=== PATIENT | male | born 1990 | race Caucasian/White ===

== ENCOUNTER 2017-02-17 11:48 | Observation (INO) | payer OTHER ==
[~2017-02-17] VITALS: Ht 165.1 cm; Wt 95.0 kg
[2017-02-17] MEDS ORDERED: MORPHINE SULFATE 8 MG/ML INJ ONE (11:54)
[2017-02-17 11:55] VITALS: O2SAT 99
[2017-02-17 12:14] LABS: I-STAT POTASSIUM 3.7 MMOL/L (3.5-4.9)
[2017-02-17 12:15] LABS: AUTOMATED NEUTROPHIL # 5.7 TH/MM3 (1.8-7.7); BASOPHIL % 0.2 % (0.0-2.0); EOSINOPHIL # 0.1 TH/MM3 (0-0.4); EOSINOPHIL % 0.8 % (0.0-4.0); HEMO FLAGS DIFF FINAL; LYMPH % 24.1 % (9.0-44.0); MEAN CELL VOLUME 91.3 FL (80.0-100.0); MEAN CORPUSCULAR HEMOGLOBIN 31.3 PG (27.0-34.0); MEAN CORPUSCULAR HGB CONC 34.3 % (32.0-36.0); MONO % 7.3 % (0.0-8.0); NEUT % 67.6 % (16.0-70.0); PLATELET COUNT 232 TH/MM3 (150-450); RED CELL DISTRIBUTION WIDTH 12.3 % (11.6-17.2); WHITE BLOOD COUNT 8.4 TH/MM3 (4.0-11.0)
[2017-02-17 12:23] LABS: APTT (PATIENT) 24.7 SEC (24.3-30.1); PROTHROMBIN TIME - PATIENT 10.6 SEC (9.8-11.6)
--- NOTE | 2017-02-17 12:29 | PD ---
HPI Chief Complaint: Trauma (Alert) Time Seen by Provider: 12:21 Travel History International Travel<30 days: No Contact w/Intl Traveler<30days: No Traveled to known affect area: No History of Present Illness HPI This is a 29 year-old gentleman is brought in by EMS as a trauma alert. The patient was up on a 15 foot ladder and while stepping down, fell backwards and fell on his left side. Patient reports pain in his left ankle, left heel, left parnell, lumbar spine. Patient also reports neck pain but states he's not sure of this is new or not. There is no reported loss of consciousness. The patient has no abdominal pain. There is no pelvic pain on rock but there is lumbar pain with rocking. Patient denies any previous past medical history. Patient denies any medications. He states he last ate this morning at about 5:40 AM. [facility] Social History Tobacco Use: No Allergies-Medications (Allergen,Severity, Reaction): Coded Allergies: No Known Allergies (Unverified , 02/17/17) Review of Systems Except as stated in HPI: all other systems reviewed are Neg General / Constitutional: No: Fever, Chills Eyes: No: Diploplia, Blurred Vision HENT: Positive: Neck Pain, No: Headaches Cardiovascular: No: Chest Pain or Discomfort, Palpitations Respiratory: No: Cough, Shortness of Breath Gastrointestinal: No: Nausea, Vomiting, Abdominal Pain Genitourinary: No: Incontinence Musculoskeletal: Positive: Pain (left foot, heel, parnell.), Other (pain in the lower lumbar area.), No: Weakness Neurologic: No: Weakness, Headache, Incontinence, Seizures, Sensory Disturbance Physical Exam Narrative GENERAL: Well-developed well-nourished male in C-spine backboard immobilization. SKIN: Focused skin assessment warm/dry. HEAD: Atraumatic. Normocephalic. EYES: No scleral icterus. No injection or drainage. ENT: No nasal bleeding or discharge. Mucous membranes pink and moist. NECK: Trachea midline. In C spine immobilization. CARDIOVASCULAR: Regular rate and rhythm. No murmur appreciated. RESPIRATORY: No accessory muscle use. Clear to auscultation. Breath sounds equal bilaterally. GASTROINTESTINAL: Abdomen soft, non-tender, nondistended. No pulsatile masses. On rocking of the pelvis, patient complains of discomfort in his lumbar spine. MUSCULOSKELETAL: No obvious deformities. Patient has tenderness to the touch on his bilateral malleoli or areas of his left ankle. There is no obvious ecchymosis or deformity. Patient also tender to touch on his heel. Again no deformity. There is no femur pain or tenderness. On pelvic rock, patient reports pain in his lumbar area. On log roll, he had tenderness to touch in his lumbar area. NEUROLOGICAL: Awake and alert. No obvious cranial nerve deficits. Motor grossly within normal limits. Normal speech. Data Data Last Documented VS Vital Signs Date Time Temp Pulse Resp B/P Pulse Ox O2 Delivery O2 Flow Rate FiO2 02/17/17 11:55 99 2.00 02/17/17 11:55 Nasal Cannula Orders Morphine Inj (Morphine Inj) (02/17/17 11:54) I-Stat Profile (02/17/17 11:50) I-Stat Creatinine (02/17/17 11:50) Complete Blood Count With Diff (02/17/17 11:50) Prothrombin Time / Inr (Pt) (02/17/17 11:50) Act Partial Throm Time (Ptt) (02/17/17 11:50) Type And Screen (02/17/17 11:50) Chest, Single Ap (02/17/17 11:50) Pelvis, Ap Only (Routine) (02/17/17 11:50) Ct Brain W/O Iv Contrast(Rout) (02/17/17 11:50) Ct Cerv Spine W/O Contrast (02/17/17 11:50) Ct Abd/Pel W Iv Contrast(Rout) (02/17/17 11:50) Ct Thor Spine W/O Contrast (02/17/17 11:50) Ct Lumb Spine W/O Contrast (02/17/17 11:50) Iv Access Insert/Monitor (02/17/17 11:50) Ecg Monitoring (02/17/17 11:50) Oximetry (02/17/17 11:50) Oxygen Administration (02/17/17 11:50) Foot, Heel Only ([id number]) (02/17/17 ) Ct Thorax/ Chest W Iv Contrast (02/17/17 ) Foot, One View (02/17/17 ) Ankle, One View (02/17/17 ) Tibia/Fibula, One View (02/17/17 ) Morphine Inj (Morphine Inj) (02/17/17 13:00) Iohexol 350 Inj (Omnipaque 350 Inj) (02/17/17 12:44) Admit To Inpatient (02/17/17 ) Vital Signs (Adult) COLT.QSHIFT (02/17/17 12:49) Intake + Output COLT.Q8H (02/17/17 12:49) Neuro Checks COLT.Q4H (02/17/17 12:49) Activity Oob Ad Cris (02/17/17 12:49) Diet Regular Basic (02/17/17 Lunch) ^ Instruction (02/17/17 12:49) Complete Blood Count With Diff (02/18/17 06:00) Basic Metabolic Panel (Bmp) (02/18/17 06:00) Sodium Chloride 0.9% Flush (Ns Flush) (02/17/17 13:00) Hydromorphone Pf Inj (Dilaudid Pf Inj) (02/17/17 14:00) Acetamin-Hydrocod 325-5 Mg ([place] 5-325 (02/17/17 13:00) Acetamin-Hydrocod 325-5 Mg ([place] 5-325 (02/17/17 13:00) Ondansetron Inj (Zofran Inj) (02/17/17 13:00) Docusate Sodium (Colace) (02/17/17 21:00) Magnesium Hydroxide Liq (Milk Of Magnesi (02/17/17 14:00) ^ Initiate Protocol (02/17/17 12:49) ^ Instruction (02/17/17 12:49) [facility] (02/17/17 13:00) Chlorhexidine 2% Cloth (Chlorhexidine 2% (02/18/17 04:00) Chlorhexidine 2% Cloth (Chlorhexidine 2% (02/17/17 13:00) [facility] Pcr Surveillance (02/17/17 12:49) Inpatient Certification (02/17/17 ) Labs Laboratory Tests Test 02/17/17 11:50 White Blood Count 8.4 TH/MM3 Red Blood Count 4.60 MIL/MM3 Hemoglobin 14.4 GM/DL Bedside Hemoglobin 14.3 G/DL Hematocrit 42.0 % Bedside Hematocrit 42.0 % Mean Corpuscular Volume 91.3 FL Mean Corpuscular Hemoglobin 31.3 PG Mean Corpuscular Hemoglobin 34.3 % Concent Red Cell Distribution Width 12.3 % Platelet Count 232 TH/MM3 Mean Platelet Volume 8.6 FL Neutrophils (%) (Auto) 67.6 % Lymphocytes (%) (Auto) 24.1 % Monocytes (%) (Auto) 7.3 % Eosinophils (%) (Auto) 0.8 % Basophils (%) (Auto) 0.2 % Neutrophils # (Auto) 5.7 TH/MM3 Lymphocytes # (Auto) 2.0 TH/MM3 Monocytes # (Auto) 0.6 TH/MM3 Eosinophils # (Auto) 0.1 TH/MM3 Basophils # (Auto) 0.0 TH/MM3 CBC Comment DIFF FINAL Differential Comment Prothrombin Time 10.6 SEC Prothromb Time International 1.0 RATIO Ratio Activated Partial 24.7 SEC Thromboplast Time Bedside Sodium 139 MMOL/L Bedside Potassium 3.7 MMOL/L Bedside Chloride 103 MMOL/L Bedside Blood Urea Nitrogen 14 MG/DL Bedside Creatinine 0.9 MG/DL Bedside Glucose 105 MG/DL Blood Type O POSITIVE Antibody Screen NEGATIVE MDM Medical Decision Making Medical Screen Exam Complete: Yes Emergency Medical Condition: Yes Differential Diagnosis Left lower extremity fracture versus lumbar fracture versus cervical spine fracture versus blunt pelvic trauma. Narrative Course 29-year-old gentleman brought in as a trauma alert after fall from ladder. The patient fell greater than 10 feet and was complaining of severe left lower extremity pain, lumbar spine pain. The patient also complaining of cervical spine pain. So far all the CT scans and x-rays are negative for acute process. The lumbar spine CT is pending at this time. The patient is having a significant amount of pain and is required to either the narcotic pain injections. Dr. Butt, on-call trauma surgeon, evaluated the patient with this physician. He is recommended we admit the patient overnight for pain control. Diagnosis Primary Impression: intractable left lower extremity pain. Additional Impressions: status post fall greater than 10 feet Low back pain Marcellus Parsons MD Feb 17, 2017 12:29
--- NOTE | 2017-02-17 12:32 | RADRPT ---
EXAM DATE/TIME: 02/17/2017 11:43 [facility] COMPARISON: No previous studies available for comparison. INDICATIONS : Trauma alert. Fall from 16 feet princess. MEDICAL HISTORY : None. SURGICAL HISTORY : None. ENCOUNTER: Initial ACUITY: 1 day PAIN SCORE: Non-responsive. LOCATION: Bilateral chest FINDINGS: Single AP view of the chest. The lungs are clear. Cardiomediastinal silhouette within normal limits. No evidence of pleural effusion or pneumothorax. CONCLUSION: No acute cardiopulmonary disease identified. Jose De Jesus MD on February 17, 2017 at 12:30 Board Certified Radiologist. This report was verified electronically.
--- NOTE | 2017-02-17 12:32 | RADRPT ---
EXAM DATE/TIME: 02/17/2017 11:43 [facility] COMPARISON: No previous studies available for comparison. INDICATIONS : Trauma alert. Fall from 16 feet princess. MEDICAL HISTORY : None. SURGICAL HISTORY : None. ENCOUNTER: Initial ACUITY: 1 day PAIN SCORE: Non-responsive. LOCATION: Pelvis FINDINGS: Single AP view of the pelvis. Bone alignment within normal limits. No evidence of fracture. CONCLUSION: No evidence of fracture. Jose De Jesus MD on February 17, 2017 at 12:30 Board Certified Radiologist. This report was verified electronically.
--- NOTE | 2017-02-17 12:34 | RADRPT ---
EXAM DATE/TIME: 02/17/2017 11:43 [facility] COMPARISON: No previous studies available for comparison. INDICATIONS : Trauma alert. Fall from 16 feet princess. MEDICAL HISTORY : None. SURGICAL HISTORY : None. ENCOUNTER: Initial ACUITY: 1 day PAIN SCORE: Non-responsive. LOCATION: Left tib/fib FINDINGS: Single AP view of the tibia and fibula. No gross evidence of fracture. CONCLUSION: No evidence of fracture. Jose De Jesus MD on February 17, 2017 at 12:31 Board Certified Radiologist. This report was verified electronically.
--- NOTE | 2017-02-17 12:39 | RADRPT ---
EXAM DATE/TIME: 02/17/2017 12:06 [facility] COMPARISON: No previous studies available for comparison. INDICATIONS : Fall from ladder RADIATION DOSE: 48.01 CTDIvol (mGy) MEDICAL HISTORY : Non-responsive. SURGICAL HISTORY : Non-responsive. ENCOUNTER: Initial ACUITY: 1 day PAIN SCALE: 6/10 LOCATION: cranial TECHNIQUE: Multiple contiguous axial images were obtained of the head. Using automated exposure control and adj ustment of the mA and/or kV according to patient size, radiation dose was kept as low as reasonably a chievable to obtain optimal diagnostic quality images. FINDINGS: CEREBRUM: The ventricles are normal for age. No evidence of midline shift, mass lesion, hemorrhage or acute in farction. No extra-axial fluid collections are seen. POSTERIOR FOSSA: The cerebellum and brainstem are intact. The 4th ventricle is midline. The cerebellopontine angle i s unremarkable. EXTRACRANIAL: The visualized portion of the orbits is intact. SKULL: The calvaria is intact. No evidence of skull fracture. CONCLUSION: No acute intracranial findings. Jose De Jesus MD on February 17, 2017 at 12:33 Board Certified Radiologist. This report was verified electronically.
[2017-02-17] MEDS ORDERED: IOHEXOL 350 MG/ML 10 ML VIAL (for RAD DIAG) IV ONE (12:44)
--- NOTE | 2017-02-17 12:46 | RADRPT ---
EXAM DATE/TIME: 02/17/2017 11:43 [facility] COMPARISON: No previous studies available for comparison. INDICATIONS : Trauma alert. Fall from 16 feet high. MEDICAL HISTORY : None. SURGICAL HISTORY : None. ENCOUNTER: Initial ACUITY: 1 day PAIN SCORE: Non-responsive. LOCATION: Left ankle FINDINGS: Single AP view of the ankle. No evidence of fracture. CONCLUSION: No evidence of fracture. Jose De Jesus MD on February 17, 2017 at 12:44 Board Certified Radiologist. This report was verified electronically.
--- NOTE | 2017-02-17 12:46 | RADRPT ---
EXAM DATE/TIME: 02/17/2017 11:43 [facility] COMPARISON: No previous studies available for comparison. INDICATIONS : Trauma alert. Fall from 16 feet princess. MEDICAL HISTORY : None. SURGICAL HISTORY : None. ENCOUNTER: Initial ACUITY: 1 day PAIN SCORE: Non-responsive. LOCATION: Left foot FINDINGS: Single AP view of the left foot. No evidence of fracture. CONCLUSION: No evidence of fracture. Jose De Jesus MD on February 17, 2017 at 12:43 Board Certified Radiologist. This report was verified electronically.
[2017-02-17] MEDS ORDERED: MORPHINE SULFATE 4 MG/ML INJ IV ONE (13:00)
[2017-02-17] MEDS ORDERED: SODIUM CHLORIDE 0.9% FLUSH 10 ML FLUSH IV FLUSH PRN (13:00)
[2017-02-17] MEDS ORDERED: ONDANSETRON HCL 4 MG/2 ML VIAL IV PRN (13:00)
[2017-02-17] MEDS ORDERED: CHLORHEXIDINE GLUCONATE 2 % 1 PACK (2 CLOTHS) TOP PRN (13:00)
[2017-02-17] MEDS ORDERED: ACETAMINOPHEN/HYDROcodone 325 MG/5 MG TAB PO PRN (13:00)
[2017-02-17] MEDS ORDERED: MISCELLANEOUS NURSING INFORMATION XX SCH (13:00)
--- NOTE | 2017-02-17 13:31 | RADRPT ---
EXAM DATE/TIME: 02/17/2017 12:14 [facility] COMPARISON: No previous studies available for comparison. INDICATIONS : fall from ladder IV CONTRAST: 93 cc Omnipaque 350 (iohexol) IV ; Cumulative dose for multiple exams. ORAL CONTRAST: No oral contrast ingested. RADIATION DOSE: 18.67 CTDIvol (mGy) ; Combined studies - Thorax/Abdomen/Pelvis MEDICAL HISTORY : None SURGICAL HISTORY : None. ENCOUNTER: Initial ACUITY: 1 day PAIN SCALE: 6/10 LOCATION: abdomen TECHNIQUE: Volumetric scanning of the abdomen and pelvis was performed. Using automated exposure control and ad justment of the mA and/or kV according to patient size, radiation dose was kept as low as reasonably achievable to obtain optimal diagnostic quality images. FINDINGS: LOWER LUNGS: The visualized lower lungs are clear. LIVER: Diffuse hypodensity of the liver indicating hepatic steatosis. No perihepatic fluid. Otherwise within normal limits. SPLEEN: Normal size without lesion. PANCREAS: Within normal limits. KIDNEYS: Normal in size and shape. There is no mass, stone or hydronephrosis. ADRENAL GLANDS: Within normal limits. VASCULAR: There is no aortic aneurysm. BOWEL/MESENTERY: The stomach, small bowel, and colon demonstrate no acute abnormality. There is no free intraperitone al air or fluid. ABDOMINAL WALL: Within normal limits. RETROPERITONEUM: There is no lymphadenopathy. BLADDER: No wall thickening or mass. REPRODUCTIVE: Within normal limits. INGUINAL: There is no lymphadenopathy or hernia. MUSCULOSKELETAL: Chronic-appearing os acetabula bilaterally. No evidence of acute fracture. Mild osteoarthritic findin gs of the hips. CONCLUSION: 1. Hepatic steatosis. 2. 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 3. No acute findings in the abdomen or pelvis. Jose De Jesus MD on February 17, 2017 at 13:09 Board Certified Radiologist. This report was verified electronically.
--- NOTE | 2017-02-17 13:42 | RADRPT ---
EXAM DATE/TIME: 02/17/2017 12:06 [facility] COMPARISON: No previous studies available for comparison. INDICATIONS : Fall from ladder RADIATION DOSE: 22.33 CTDIvol (mGy) MEDICAL HISTORY : None SURGICAL HISTORY : None. ENCOUNTER: Initial ACUITY: 1 day PAIN SCALE: 5/10 LOCATION: neck TECHNIQUE: Volumetric scanning of the cervical spine was performed. Multiplanar reconstructions in the sagittal, coronal and oblique axial planes were performed. Using automated exposure control and adjustment o f the mA and/or kV according to patient size, radiation dose was kept as low as reasonably achievable to obtain optimal diagnostic quality images. FINDINGS: VERTEBRAE: Normal vertebral body height. ALIGNMENT: No evidence of subluxation. C2-C3: The bony spinal canal is normal in size. No evidence of disc bulge or herniation. The neural forami na are bilaterally patent. C3-C4: The bony spinal canal is normal in size. No evidence of disc bulge or herniation. The neural forami na are bilaterally patent. C4-C5: The bony spinal canal is normal in size. No evidence of disc bulge or herniation. The neural forami na are bilaterally patent. C5-C6: The bony spinal canal is normal in size. No evidence of disc bulge or herniation. The neural forami na are bilaterally patent. C6-C7: The bony spinal canal is normal in size. No evidence of disc bulge or herniation. The neural forami na are bilaterally patent. C7-T1: The bony spinal canal is normal in size. No evidence of disc bulge or herniation. The neural forami na are bilaterally patent. CONCLUSION: Normal examination. Pako Fernandez Jr., MD on February 17, 2017 at 13:38 Board Certified Radiologist. This report was verified electronically.
--- NOTE | 2017-02-17 13:47 | RADRPT ---
EXAM DATE/TIME: 02/17/2017 13:45 [facility] COMPARISON: No previous studies available for comparison. INDICATIONS : Trauma Alert. MEDICAL HISTORY : None. SURGICAL HISTORY : None. ENCOUNTER: Initial ACUITY: 1 day PAIN SCORE: 0/10 LOCATION: Left Heel. FINDINGS: Two view examination of the left heel demonstrates the trabecula to be intact with no evidence of fra cture. There is a normal calcaneal angle. The soft tissues are of normal thickness. CONCLUSION: 1. Negative examination of the calcaneus. Ace He MD on February 17, 2017 at 13:44 Board Certified Radiologist. This report was verified electronically.
--- NOTE | 2017-02-17 13:49 | RADRPT ---
EXAM DATE/TIME: 02/17/2017 12:14 [facility] COMPARISON: No previous studies available for comparison. INDICATIONS : Fall from ladder IV CONTRAST: 93 cc Omnipaque 350 (iohexol) IV ; Cumulative dose for multiple exams. RADIATION DOSE: 18.67 CTDIvol (mGy) ; Combined studies - Thorax/Abdomen/Pelvis MEDICAL HISTORY : None SURGICAL HISTORY : None. ENCOUNTER: Initial ACUITY: 1 day PAIN SCALE: 5/10 LOCATION: chest TECHNIQUE: Volumetric scanning of the chest was performed. Using automated exposure control and adjustment of t he mA and/or kV according to patient size, radiation dose was kept as low as reasonably achievable to obtain optimal diagnostic quality images. FINDINGS: LUNGS: There is no consolidation or pneumothorax. No concerning pulmonary nodule is visualized. PLEURA: There is no pleural thickening or pleural effusion. MEDIASTINUM: The heart and great vessels demonstrate no acute abnormality. There is no mediastinal or hilar lymph adenopathy. AXILLAE: Within normal limits. No lymphadenopathy. SKELETAL: Within normal limits for patient age. MISCELLANEOUS: The visualized upper abdominal organs demonstrate no acute abnormality. CONCLUSION: Normal examination. Pako Fernandez Jr., MD on February 17, 2017 at 13:41 Board Certified Radiologist. This report was verified electronically.
[2017-02-17 13:50] VITALS: BP 120/66; PULSE 85; RESP 16
--- NOTE | 2017-02-17 13:52 | RADRPT ---
EXAM DATE/TIME: 02/17/2017 12:14 [facility] COMPARISON: No previous studies available for comparison. INDICATIONS : Trauma alert, fall from ladder. RADIATION DOSE: Reconstructed from previous dataset MEDICAL HISTORY : Non-responsive. SURGICAL HISTORY : Non-responsive. ENCOUNTER: Initial ACUITY: 1 day PAIN SCALE: Non-responsive LOCATION: back TECHNIQUE: Volumetric scanning of the thoracic spine was performed. Multiplanar reconstructions in the sagittal , coronal and oblique axial planes were performed. Using automated exposure control and adjustment o f the mA and/or kV according to patient size, radiation dose was kept as low as reasonably achievable to obtain optimal diagnostic quality images. FINDINGS: The vertebral bodies of the thoracic spine are in normal alignment without evidence of subluxation. Vertebral body height is maintained. No fractures are seen. T1-T2: Normal. T2-T3: The thecal sac has a normal diameter. No evidence of disc bulge or protrusion. T3-T4: The thecal sac has a normal diameter. No evidence of disc bulge or protrusion. T4-T5: The thecal sac has a normal diameter. No evidence of disc bulge or protrusion. T5-T6: The thecal sac has a normal diameter. No evidence of disc bulge or protrusion. T6-T7: The thecal sac has a normal diameter. No evidence of disc bulge or protrusion. T7-T8: The thecal sac has a normal diameter. No evidence of disc bulge or protrusion. T8-T9: The thecal sac has a normal diameter. No evidence of disc bulge or protrusion. T9-T10: The thecal sac has a normal diameter. No evidence of disc bulge or protrusion. T10-T11: The thecal sac has a normal diameter. No evidence of disc bulge or protrusion. T11-T12: The thecal sac has a normal diameter. No evidence of disc bulge or protrusion. T12-L1: The thecal sac has a normal diameter. No evidence of disc bulge or protrusion. CONCLUSION: Normal examination. Pako Fernandez Jr., MD on February 17, 2017 at 13:48 Board Certified Radiologist. This report was verified electronically.
[2017-02-17] MEDS ORDERED: MAGNESIUM HYDROXIDE SUSP 30 ML CUP PO PRN (14:00)
[2017-02-17] MEDS ORDERED: HYDROmorphone HCL PF 1 MG/ML VIAL IVP PRN (14:00)
--- NOTE | 2017-02-17 14:12 | HHI.HP ---
History of Present Illness Primary Care Physician Unknown Admission Diagnosis Diagnoses: History of Present Illness 29 y.o male trauma alert after fall from ladder 16 foot height.HD normal,neuro intact-c/o pain left heel,left calcaneus,lumbar spine and neck Review of Systems Constitutional: DENIES: Diaphoretic episodes, Fatigue, Fever, Weight gain, Weight loss, Chills, Dizziness, Change in appetite, Night Sweats Endocrine: DENIES: Heat/cold intolerance, Polydipsia, Polyuria, Polyphagia Eyes: DENIES: Blurred vision, Diplopia, Eye inflammation, Eye pain, Vision loss , Photosensitivity, Double Vision Ears, nose, mouth, throat: DENIES: Tinnitus, Hearing loss, Vertigo, Nasal discharge, Oral lesions, Throat pain, Hoarseness, Ear Pain, Running Nose, Epistaxis, Sinus Pain, Toothache, Odynophagia Respiratory: DENIES: Apneas, Cough, Snoring, Wheezing, Hemoptysis, Sputum production, Shortness of breath Cardiovascular: DENIES: Chest pain, Palpitations, Syncope, Dyspnea on Exertion , PND, Lower Extremity Edema, Orthopnea, Claudication Gastrointestinal: DENIES: Abdominal pain, Black stools, Bloody stools, Constipation, Diarrhea, Nausea, Vomiting, Difficulty Swallowing, Anorexia Genitourinary: DENIES: Sexual dysfunction, Urinary frequency, Urinary incontinence, Urgency, Hematuria, Dysuria, Nocturia, Penile Discharge, Testicular Pain, Testicular Swelling Musculoskeletal: DENIES: Joint pain, Muscle aches, Stiffness, Joint Swelling, Back pain, Neck pain Integumentary: DENIES: Abnormal pigmentation, Nail changes, Pruritus, Rash Hematologic/lymphatic: DENIES: Bruising, Lymphadenopathy Immunologic/allergic: DENIES: Eczema, Urticaria Neurologic: DENIES: Abnormal gait, Headache, Localized weakness, Paresthesias, Seizures, Speech Problems, Tremor, Poor Balance Psychiatric: DENIES: Anxiety, Confusion, Mood changes, Depression, Hallucinations, Agitation, Suicidal Ideation, Homicidal Ideation, Delusions Past Family Social History Allergies: Coded Allergies: No Known Allergies (Unverified , 02/17/17) Past Medical History none Past Surgical History none Reported Medications none Active Ordered Medications none Family History negative Social History no etoh/drug abuse Physical Exam Vital Signs Vital Signs Date Time Temp Pulse Resp B/P Pulse Ox O2 Delivery O2 Flow Rate FiO2 02/17/17 11:55 99 2.00 02/17/17 11:55 99 Nasal Cannula 2.00 Physical Exam GENERAL: This is a well-nourished, well-developed patient, in no apparent distress-but c/o pain SKIN: No rashes, ecchymoses or lesions. Cool and dry. HEAD: Atraumatic. Normocephalic. No temporal or scalp tenderness. EYES: Pupils equal round and reactive. Extraocular motions intact. No scleral icterus. No injection or drainage. ENT: Nose without bleeding, purulent drainage or septal hematoma. Throat without erythema, tonsillar hypertrophy or exudate. Uvula midline. Airway patent. NECK: Trachea midline. No JVD or lymphadenopathy. Supple, nontender, no meningeal signs. CARDIOVASCULAR: Regular rate and rhythm without murmurs, gallops, or rubs. ST RESPIRATORY: Clear to auscultation. Breath sounds equal bilaterally. No wheezes , rales, or rhonchi. GASTROINTESTINAL: Abdomen soft, non-tender, nondistended. No hepato-splenomegaly , or palpable masses. No guarding. MUSCULOSKELETAL: Extremities without clubbing, cyanosis, or edema. No joint tenderness, effusion, or edema noted. Tenderness left calcaneus,left ankle,left tib/fib NEUROLOGICAL: Awake and alert. Cranial nerves II through XII intact. Motor and sensory grossly within normal limits. Five out of 5 muscle strength in all muscle groups. Normal speech. Laboratory Laboratory Tests Test 02/17/17 11:50 White Blood Count 8.4 Red Blood Count 4.60 Hemoglobin 14.4 Bedside Hemoglobin 14.3 Hematocrit 42.0 Bedside Hematocrit 42.0 Mean Corpuscular Volume 91.3 Mean Corpuscular Hemoglobin 31.3 Mean Corpuscular Hemoglobin 34.3 Concent Red Cell Distribution Width 12.3 Platelet Count 232 Mean Platelet Volume 8.6 Neutrophils (%) (Auto) 67.6 Lymphocytes (%) (Auto) 24.1 Monocytes (%) (Auto) 7.3 Eosinophils (%) (Auto) 0.8 Basophils (%) (Auto) 0.2 Neutrophils # (Auto) 5.7 Lymphocytes # (Auto) 2.0 Monocytes # (Auto) 0.6 Eosinophils # (Auto) 0.1 Basophils # (Auto) 0.0 CBC Comment DIFF FINAL Differential Comment Prothrombin Time 10.6 Prothromb Time International 1.0 Ratio Activated Partial 24.7 Thromboplast Time Bedside Sodium 139 Bedside Potassium 3.7 Bedside Chloride 103 Bedside Blood Urea Nitrogen 14 Bedside Creatinine 0.9 Bedside Glucose 105 Blood Type O POSITIVE Antibody Screen NEGATIVE Result Diagram: 02/17/[address] head-C spine-C CAP-negative Plain xray left heel,ankle,left tib fib negative Assessment and Plan Assessment and Plan Fell from significant height no systemic injuries Contusion back-left heel-left foot Admit to floor pain control ambulate PT Rita Lee MD Feb 17, 2017 14:12
--- NOTE | 2017-02-17 14:28 | RADRPT ---
EXAM DATE/TIME: 02/17/2017 12:14 [facility] COMPARISON: No previous studies available for comparison. INDICATIONS : Fall from ladder RADIATION DOSE: CTDIvol (mGy) ; Reconstructed from previous dataset MEDICAL HISTORY : Non-responsive. SURGICAL HISTORY : Non-responsive. ENCOUNTER: Initial ACUITY: 1 day PAIN SCALE: 6/10 LOCATION: lower back TECHNIQUE: Volumetric scanning of the lumbar spine was performed. Multiplanar reconstructions in the sagittal, coronal and oblique axial planes were performed. Using automated exposure control and adjustment of the mA and/or kV according to patient size, radiation dose was kept as low as reasonably achievable t o obtain optimal diagnostic quality images. FINDINGS: VERTEBRAE: Normal vertebral body height. ALIGNMENT: No evidence of subluxation. T12-L1: The thecal sac has a normal diameter. No evidence of disc bulge or protrusion. The neural foramina are patent bilaterally. L1-L2: The thecal sac has a normal diameter. No evidence of disc bulge or protrusion. The neural foramina are patent bilaterally. L2-L3: The thecal sac has a normal diameter. No evidence of disc bulge or protrusion. The neural foramina are patent bilaterally. L3-L4: The thecal sac has a normal diameter. No evidence of disc bulge or protrusion. The neural foramina are patent bilaterally. L4-L5: The thecal sac has a normal diameter. No evidence of disc bulge or protrusion. The neural foramina are patent bilaterally. L5-S1: The thecal sac has a normal diameter. No evidence of disc bulge or protrusion. The neural foramina are patent bilaterally. CONCLUSION: Normal examination. Pako Fernandez Jr., MD on February 17, 2017 at 13:51 Board Certified Radiologist. This report was verified electronically.
[2017-02-17 16:26] VITALS: BP 105/53; PULSE 85; RESP 16; O2SAT 100
[2017-02-17 16:55] VITALS: BP 141/81; PULSE 88; RESP 16; TEMP 97.8; O2SAT 96
[2017-02-17] MEDS: ACETAMINOPHEN/HYDROcodone 325 MG/5 MG TAB PO PRN ×2 (17:06→21:15)
[2017-02-17 19:48] VITALS: BP 109/54; PULSE 78; RESP 20; TEMP 97.6; O2SAT 97
[2017-02-17] MEDS: DOCUSATE SODIUM 100 MG CAP PO SCH (21:11)
[2017-02-18] VITALS (7 sets, daily range): BP systolic 105–136; BP diastolic 53–84; PULSE 62–75; RESP 16–20; TEMP 97.6–98.6; O2SAT 95–100
[2017-02-18] MEDS: ACETAMINOPHEN/HYDROcodone 325 MG/5 MG TAB PO PRN ×2 (02:44→07:59)
[2017-02-18] MEDS: CHLORHEXIDINE GLUCONATE 2 % 1 PACK (2 CLOTHS) TOP SCH (04:00)
[2017-02-18 04:27] LABS: AUTOMATED NEUTROPHIL # 4.1 TH/MM3 (1.8-7.7); BASOPHIL % 0.3 % (0.0-2.0); EOSINOPHIL # 0.2 TH/MM3 (0-0.4); EOSINOPHIL % 2.2 % (0.0-4.0); HEMO FLAGS DIFF FINAL; LYMPH % 31.1 % (9.0-44.0); LYMPHOCYTE # 2.3 TH/MM3 (1.0-4.8); MEAN CELL VOLUME 92.2 FL (80.0-100.0); MEAN CORPUSCULAR HEMOGLOBIN 31.6 PG (27.0-34.0); MEAN CORPUSCULAR HGB CONC 34.2 % (32.0-36.0); MONO % 10.4 % (0.0-8.0); PLATELET COUNT 210 TH/MM3 (150-450); RED BLOOD COUNT 4.22 MIL/MM3 (4.50-5.90); RED CELL DISTRIBUTION WIDTH 12.1 % (11.6-17.2); WHITE BLOOD COUNT 7.4 TH/MM3 (4.0-11.0)
[2017-02-18 04:49] LABS: BICARBONATE 31.9 MEQ/L (21.0-32.0); POTASSIUM 3.5 MEQ/L (3.5-5.1)
[2017-02-18] MEDS: DOCUSATE SODIUM 100 MG CAP PO SCH ×2 (08:00→20:03)
[2017-02-18 11:38] LABS: AMPHETAMINE, URINE NEG (NEG); BARBITURATES, URINE NEG (NEG); COCAINE, URINE NEG (NEG)
[2017-02-18] MEDS ORDERED: CRUTMIS (12:47)
[2017-02-18] MEDS: FAMOTIDINE 20 MG TAB PO SCH ×2 (14:14→20:03)
[2017-02-18] MEDS: KETOROLAC TROMETHAMINE 30 MG/ML (IVP) VIAL IV PUSH SCH ×2 (14:14→20:04)
[2017-02-18] MEDS: METHOCARBAMOL 500 MG TAB PO SCH ×2 (14:15→22:45)
--- NOTE | 2017-02-18 14:16 | HHI.PR ---
Subjective Subjective Notes Complains of left heel pain. Reports he is unable to bear weight on the left foot Reports back pain. Ambulating in room unassisted. Objective Vitals/I&O Vital Signs Date Time Temp Pulse Resp B/P Pulse Ox O2 Delivery O2 Flow Rate FiO2 02/18/17 11:33 97.6 71 16 105/53 97 02/17/17 16:25 Nasal Cannula 2.00 Labs Laboratory Tests Test 02/18/17 02/18/17 03:42 11:24 White Blood Count 7.4 Red Blood Count 4.22 Hemoglobin 13.3 Hematocrit 39.0 Mean Corpuscular Volume 92.2 Mean Corpuscular Hemoglobin 31.6 Mean Corpuscular Hemoglobin 34.2 Concent Red Cell Distribution Width 12.1 Platelet Count 210 Mean Platelet Volume 8.6 Neutrophils (%) (Auto) 56.0 Lymphocytes (%) (Auto) 31.1 Monocytes (%) (Auto) 10.4 Eosinophils (%) (Auto) 2.2 Basophils (%) (Auto) 0.3 Neutrophils # (Auto) 4.1 Lymphocytes # (Auto) 2.3 Monocytes # (Auto) 0.8 Eosinophils # (Auto) 0.2 Basophils # (Auto) 0.0 CBC Comment DIFF FINAL Differential Comment Sodium Level 138 Potassium Level 3.5 Chloride Level 101 Carbon Dioxide Level 31.9 Anion Gap 5 Blood Urea Nitrogen 13 Creatinine 0.93 Estimat Glomerular Filtration 70 Rate Random Glucose 105 Calcium Level 9.4 Urine Opiates Screen POS Urine Barbiturates Screen NEG Urine Amphetamines Screen NEG Urine Benzodiazepines Screen NEG Urine Cocaine Screen NEG Urine Cannabinoids Screen NEG Radiology Last Impressions Thoracic Spine CT 02/17/17 1150 Signed Impressions: Service Date/Time: Friday, February 17, 2017 12:14 - CONCLUSION: Normal examination. Pako Fernandez Jr., MD Pelvis X-Ray 02/17/17 1150 Signed Impressions: Service Date/Time: Friday, February 17, 2017 11:43 - CONCLUSION: No evidence of fracture. Jose De Jesus MD Lumbar Spine CT 02/17/17 1150 Signed Impressions: Service Date/Time: Friday, February 17, 2017 12:14 - CONCLUSION: Normal examination. Pako Fernandez Jr., MD Head CT 02/17/17 1150 Signed Impressions: Service Date/Time: Friday, February 17, 2017 12:06 - CONCLUSION: No acute intracranial findings. Jose De Jesus MD Chest X-Ray 02/17/17 1150 Signed Impressions: Service Date/Time: Friday, February 17, 2017 11:43 - CONCLUSION: No acute cardiopulmonary disease identified. Jose De Jesus MD Cervical Spine CT 02/17/17 1150 Signed Impressions: Service Date/Time: Friday, February 17, 2017 12:06 - CONCLUSION: Normal examination. Pako Fernandez Jr., MD Abdomen/Pelvis CT 02/17/17 1150 Signed Impressions: Service Date/Time: Friday, February 17, 2017 12:14 - CONCLUSION: 1. Hepatic steatosis. 2. 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 3. No acute findings in the abdomen or pelvis. Jose De Jesus MD Tibia/Fibula X-Ray 02/17/17 0000 Signed Impressions: Service Date/Time: Friday, February 17, 2017 11:43 - CONCLUSION: No evidence of fracture. Jose De Jesus MD Foot X-Ray 02/17/17 0000 Signed Impressions: Service Date/Time: Friday, February 17, 2017 11:43 - CONCLUSION: No evidence of fracture. Jose De Jesus MD Chest CT 02/17/17 0000 Signed Impressions: Service Date/Time: Friday, February 17, 2017 12:14 - CONCLUSION: Normal examination. Pako Fernandez Jr., MD Ankle X-Ray 02/17/17 0000 Signed Impressions: Service Date/Time: Friday, February 17, 2017 11:43 - CONCLUSION: No evidence of fracture. Jose De Jesus MD Narrative Exam GENERAL: 26-year-old well-nourished, well developed male standing at bedside. SKIN: Warm and dry. HEAD: Atraumatic. Normocephalic. ENT: No nasal bleeding or discharge. Mucous membranes pink and moist. NECK: Trachea midline. No JVD. CARDIOVASCULAR: Regular rate and rhythm. RESPIRATORY: No accessory muscle use. Lungs clear to auscultation. Breath sounds equal bilaterally. GASTROINTESTINAL: Abdomen soft, non-tender, nondistended. + BS. MUSCULOSKELETAL: Extremities without cyanosis, or edema. Left second and third meta-carpal with ecchymosis and limited range of motion noted. NEUROLOGICAL: Awake and alert. Normal speech. A/P Assessment and Plan NATIVE: Fall off a ladder from 15 feet when he lost his footing and fell onto his left side. No LOC. INJURIES: None Diet: Regular, tolerating Pulmonary: On room air. Pain: [place] 1-2 tabs, Dilaudid. Robaxin and Toradol ordered for better pain control. Activity: OOB. PT ordered. GI: Pepcid Bowel: Colace. MOM DVT: SCDs CT of the left foot ordered to assess for an underlying cause patient would be able to bear weight on that foot. Consider orthopedics consult for further evaluation. X-ray of the left hand ordered to rule out fracture. Plan of care discussed patient and family at bedside. Lorna Pugh Feb 18, 2017 14:16
--- NOTE | 2017-02-18 14:57 | RADRPT ---
EXAM DATE/TIME: 02/18/2017 13:38 [facility] COMPARISON: No previous studies available for comparison. INDICATIONS : Left hand pain primarily in the 3rd & 4th digits post fall from ladder. MEDICAL HISTORY : None. SURGICAL HISTORY : None. ENCOUNTER: Subsequent ACUITY: 2 days PAIN SCORE: 5/10 LOCATION: Left hand FINDINGS: There is soft-tissue swelling about the 3rd and 4th digits without fracture. Alignment is anatomic. CONCLUSION: Soft-tissue swelling without fracture. Jc Ordonez MD FACR on February 18, 2017 at 14:39 Board Certified Radiologist. This report was verified electronically.
--- NOTE | 2017-02-18 14:58 | RADRPT ---
EXAM DATE/TIME: 02/18/2017 13:55 [facility] COMPARISON: No previous studies available for comparison. INDICATIONS : Fall from ladder evaluate for fracture. RADIATION DOSE: 5.12 CTDIvol (mGy) MEDICAL HISTORY : None SURGICAL HISTORY : None. ENCOUNTER: Initial ACUITY: 2 days PAIN SCALE: 4/10 LOCATION: Left foot TECHNIQUE: Volumetric scanning of the foot was performed. Using automated exposure control and a djustment of the mA and/or kV according to patient size, radiation dose was kept as low as reasonably achievable to obtain optimal diagnostic quality images. FINDINGS: CT scan of the foot was performed. I do not see evidence for an occult fracture. The calcaneus and talus are intact. Tibiotalar joint is intact. CONCLUSION: I don't see evidence for an occult fracture. Jc Ordonez MD FACR on February 18, 2017 at 14:44 Board Certified Radiologist. This report was verified electronically.
[2017-02-19] MEDS: KETOROLAC TROMETHAMINE 30 MG/ML (IVP) VIAL IV PUSH SCH ×2 (02:17→08:17)
[2017-02-19 03:59] VITALS: BP 108/56; PULSE 57; RESP 20; TEMP 97.6; O2SAT 99
[2017-02-19] MEDS: CHLORHEXIDINE GLUCONATE 2 % 1 PACK (2 CLOTHS) TOP SCH (04:00)
[2017-02-19] MEDS: METHOCARBAMOL 500 MG TAB PO SCH (05:39)
--- NOTE | 2017-02-19 07:07 | MB ---
cc: ZULEIKA LEE MD, MARK C. M.D. DATE OF CONSULTATION 02/19/[address] Lee REASON FOR CONSULTATION Fall from height with intractable leg pain. HISTORY This is a 29-year-old white male trauma alert, who presents to the emergency room. He apparently fell approximately 16 feet from a ladder. He had no loss of consciousness. The patient complained of predominantly left heel and calcaneal pain with low back and neck pain. He was brought into the trauma service, evaluated and treated. Initially, was a [place] [address] [place] [address]. I have been asked to see him in consultation regarding his leg pain. PAST MEDICAL HISTORY MEDICAL HISTORY Unremarkable PAST SURGICAL HISTORY None MEDICATIONS He denies any medications. ALLERGIES He denies any allergies. FAMILY HISTORY Noncontributory SOCIAL HISTORY Denies ethanol and drug abuse. PHYSICAL EXAMINATION Alert, well-nourished white male. He speaks Bah[place]ian clearly. HEENT: Normocephalic, atraumatic. Pupils equal, round, reactive to light and accommodation, extraocular motions intact. NECK: Supple. Mild discomfort range of motion, minimal spasm. HEART: Regular rate and rhythm. ABDOMEN: Soft and nontender, normoactive bowel sounds. MUSCULOSKELETAL: The patient's thoracolumbar spine has mild discomfort, minimal spasm, pain with range of motion. Pelvis is level. EXTREMITIES: Both upper extremities, no tenderness about the shoulder, elbow or wrist. Left hand shows mild swelling involving the midportion of the hand. No crepitus. No misalignment. No instability. Lower extremity hip, knee and ankle examination is within normal limits. No abnormal swelling. Moderate tenderness mostly at the left calcaneal and base of the heel region. No crepitus. No ecchymosis. Normal alignment. Sensation is normal. Dorsalis pedis 2+. CT reviewed of the cervical spine and review of the radiologist's interpretation shows no evidence of a fracture. CT of the thoracic spine including radiologist's interpretation showed no evidence of a fracture. CT of the lumbar spine including radiologist interpretation shows no evidence of a fracture. X-ray of the left ankle and foot including radiologist's interpretation shows no evidence of a fracture. CT of the left foot and ankle including radiologist's interpretation showed no evidence of fracture. X-ray of the left hand including radiologist's interpretation shows soft tissue swelling, but no evidence of fracture. IMPRESSION 1. Fall from a height, 16 feet. 2. Contusion left heel. 3. Contusion left hand. 4. Strain of the cervical, thoracic and lumbar spine. PLAN 1. Nonsurgical treatment. 2. Fracture of the left ankle and foot. 3. Weightbearing as tolerated 4. Follow up in approximately three weeks. Repeat x-rays on return. 5. Stable from the orthopedic standpoint for discharge. MD CESAR Olmos/ARCADIO /6:46 AM /6:57 AM
[2017-02-19] MEDS: DOCUSATE SODIUM 100 MG CAP PO SCH (08:16)
[2017-02-19] MEDS: FAMOTIDINE 20 MG TAB PO SCH (08:16)
[2017-02-19 12:13] VITALS: BP 119/65; PULSE 80; RESP 18; TEMP 97.8; O2SAT 97
[2017-02-19] MEDS ORDERED: HYDR-4107 PO (12:15)
[2017-02-19] MEDS ORDERED: METH500T3 PO (13:06)
--- NOTE | 2017-02-19 14:10 | HHI.DS ---
Discharge Summary Admission Date Feb 17, 2017 at 14:24 Discharge Date: Feb 19, 2017 Admitting Diagnosis intractable left lower extremity pain, fall greater than 10 feet, Brief History S/P Trauma: Fall CBC/BMP: 02/18/17 0342 02/18/17 0342 Significant Findings Laboratory Tests Test 02/17/17 02/18/17 02/18/17 11:50 03:42 11:24 Bedside Glucose 105 MG/DL (60-95) Red Blood Count 4.22 MIL/MM3 (4.50-5.90) Monocytes (%) (Auto) 10.4 % (0.0-8.0) Estimat Glomerular Filtration 70 ML/MIN (>89) Rate Urine Opiates Screen POS (NEG) Imaging Last Impressions Lower Extremity CT 02/18/17 0000 Signed Impressions: Service Date/Time: Saturday, February 18, 2017 13:55 - CONCLUSION: I don't see evidence for an occult fracture. Jc Ordonez MD FACR Hand X-Ray 02/18/17 0000 Signed Impressions: Service Date/Time: Saturday, February 18, 2017 13:38 - CONCLUSION: Soft-tissue swelling without fracture. Jc Ordonez MD FACR Thoracic Spine CT 02/17/17 1150 Signed Impressions: Service Date/Time: Friday, February 17, 2017 12:14 - CONCLUSION: Normal examination. Pako Fernandez Jr., MD Pelvis X-Ray 02/17/17 1150 Signed Impressions: Service Date/Time: Friday, February 17, 2017 11:43 - CONCLUSION: No evidence of fracture. Jose De Jesus MD Lumbar Spine CT 02/17/17 1150 Signed Impressions: Service Date/Time: Friday, February 17, 2017 12:14 - CONCLUSION: Normal examination. Pako Fernandez Jr., MD Head CT 02/17/17 1150 Signed Impressions: Service Date/Time: Friday, February 17, 2017 12:06 - CONCLUSION: No acute intracranial findings. Jose De Jesus MD Chest X-Ray 02/17/17 1150 Signed Impressions: Service Date/Time: Friday, February 17, 2017 11:43 - CONCLUSION: No acute cardiopulmonary disease identified. Jose De Jesus MD Cervical Spine CT 02/17/17 1150 Signed Impressions: Service Date/Time: Friday, February 17, 2017 12:06 - CONCLUSION: Normal examination. Pako Fernandez Jr., MD Abdomen/Pelvis CT 02/17/17 1150 Signed Impressions: Service Date/Time: Friday, February 17, 2017 12:14 - CONCLUSION: 1. Hepatic steatosis. 2. 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 3. No acute findings in the abdomen or pelvis. Jose De Jesus MD Tibia/Fibula X-Ray 02/17/17 0000 Signed Impressions: Service Date/Time: Friday, February 17, 2017 11:43 - CONCLUSION: No evidence of fracture. Jose De Jesus MD Foot X-Ray 02/17/17 0000 Signed Impressions: Service Date/Time: Friday, February 17, 2017 11:43 - CONCLUSION: No evidence of fracture. Jose De Jesus MD Chest CT 02/17/17 0000 Signed Impressions: Service Date/Time: Friday, February 17, 2017 12:14 - CONCLUSION: Normal examination. Pako Fernandez Jr., MD Ankle X-Ray 02/17/17 0000 Signed Impressions: Service Date/Time: Friday, February 17, 2017 11:43 - CONCLUSION: No evidence of fracture. Jose De Jesus MD PE at Discharge GENERAL: 26-year-old well-nourished, well developed male standing at bedside. SKIN: Warm and dry. HEAD: Atraumatic. Normocephalic. ENT: No nasal bleeding or discharge. Mucous membranes pink and moist. NECK: Trachea midline. No JVD. CARDIOVASCULAR: Regular rate and rhythm. RESPIRATORY: No accessory muscle use. Lungs clear to auscultation. Breath sounds equal bilaterally. GASTROINTESTINAL: Abdomen soft, non-tender, nondistended. + BS. MUSCULOSKELETAL: Extremities without cyanosis, or edema. Left second and third meta-carpal with ecchymosis and limited range of motion noted. Left foot fracture boot in place. NEUROLOGICAL: Awake and alert. Normal speech. Hospital Course [place]: Fall off a ladder from 15 feet when he lost his footing and fell onto his left side. No LOC. INJURIES: Contusions of left heel and left hand Diet: Regular, tolerating Pulmonary: Room air Pain: [place] 1-2 tabs, Robaxin, Toradol. Pain controlled Activity: OOB. PT evaluated. Patient ambulating better with fracture boot on and is now able to bear weight on that foot with less pain. GI: Pepcid Bowel: Colace. MOM DVT: SCDs Orthopedics evaluated patient and determine the left heel was a contusion. Fracture boot ordered. Follow-up as outpatient. Follow-up with PCP. Patient is clear from trauma surgery standpoint to safely discharge home. Pt Condition on Discharge: Stable Discharge Disposition: Discharge Home Discharge Instructions DIET: Follow Instructions for: As Tolerated, No Restrictions Activities you can perform: Weight Bearing as Radha Other Activity Instructions: Wear left fracture boot as needed for comfort Lorna Pugh Feb 19, 2017 14:09
== END 2017-02-19 14:23 | disposition home or self-care (01) ==
LOC: NEPI 11:48 → NEDA 14:24 → EDBD 14:24 → NEPFCDU 16:54
PROVIDERS: ADMIT Surgery Trauma Surgery; ATTEND Surgery Trauma Surgery
DX: M25.572 Pain in left ankle and joints of left foot (principal); M54.5 Low back pain; M54.2 Cervicalgia; W11.XXXA Fall on and from ladder, initial encounter; M79.605 Pain in left leg; S90.32XA Contusion of left foot, initial encounter; S60.222A Contusion of left hand, initial encounter; S39.012A Strain of muscle, fascia and tendon of lower back, initial encounter; S16.1XXA Strain of muscle, fascia and tendon at neck level, initial encounter; S29.012A Strain of muscle and tendon of back wall of thorax, initial encounter; K76.0 Fatty (change of) liver, not elsewhere classified; M79.672 Pain in left foot
CPT/HCPCS: 70450; 71010; 71260; 72125; 72128; 72131; 72170; 73130; 73590; 73600; 73620; 73650; 73700; 74177; 80048; 80307; 82435; 82565; 82947; 84132; 84295; 84520; 85025; 85610; 85730; 86850; 86900; 86901; 96374; 97116; 97162; 99285; 99291; E0113; G0378; G8987; G8988; J1885; J2270; L2114; Q9967; G0390